=== PATIENT | female | born 1960 | race Two or more races ===

== ENCOUNTER 2023-08-05 16:33 | Emergency (ER) | payer MEDICAID, OTHER ==
[~2023-08-05] VITALS: Ht 172.7 cm; Wt 84.5 kg
[2023-08-05 18:18] LABS: Basophils # (auto) 0 10 ^3/uL (0-0.2); Basophils % (auto) 0.9 % (0.0-2.0); Eosinophils # (auto) 0.1 10 ^3/uL (0-0.8); Eosinophils % (auto) 2.4 % (0.0-7.0); Hematocrit 41.5 % (36.0-46.0); Hemoglobin 13.8 g/dL (12.2-16.2); Lymphocytes # (auto) 2.1 10 ^3/uL (0.4-5.4); Lymphocytes % (auto) 38.1 % (10.0-50.0); Mean Corpuscular Hemoglobin 30.7 pg (28.0-32.0); Mean Corpuscular Hgb Conc. 33.3 g/dL (32.0-36.0); Mean Corpuscular Volume 92.4 fL (80.0-100.0); Monocytes # (auto) 0.3 10 ^3/uL (0-1.3); Neutrophils # (auto) 2.9 10 ^3/uL (1.6-8.6); Neutrophils % (auto) 52.6 % (37.0-80.0); Nucleated Red Blood Cells % 0.1 %; Red Blood Cells 4.49 10^6/uL (4.0-5.20); Red Cell Distribution Width 13.1 % (11.8-14.3); White Blood Cell 5.5 10^3/uL (4.4-10.8)
[2023-08-05 18:36] LABS: Alanine Aminotransferase 30 U/L (7-40); Albumin 4.3 g/dL (3.2-4.8); Alkaline Phosphatase 45 U/L (46-116); Anion Gap 7 (5-15); Aspartate Aminotransferase 32 U/L (13-40); BUN/Creatinine Ratio 13.3 (10.0-20.0); Bilirubin, Total 0.4 mg/dL (0.2-1.0); Blood Urea Nitrogen 14 mg/dL (9-23); Calcium 9.4 mg/dL (8.7-10.4); Carbon Dioxide 27 mmol/L (20-30); Chloride 107 mmol/L (98-107); Glucose 129 mg/dL (74-106); Potassium 4.2 mmol/L (3.5-5.1); Sodium 141 mmol/L (136-145); Total Protein 6.5 g/dL (5.7-8.2)
[2023-08-05 23:09] VITALS: BP 142/66; TEMP 98.5
[2023-08-05 23:11] VITALS: PULSE 92; RESP 18; O2SAT 97
== END 2023-08-05 23:38 | disposition short-term general hospital (02) ==
LOC: ER 16:33
DX: R90.0 Intracranial space-occupying lesion found on diagnostic imaging of central nervous system (principal); R42 Dizziness and giddiness; R20.0 Anesthesia of skin
CPT/HCPCS: 36415; 70450; 80053; 84484; 85025; 93005

== ENCOUNTER 2024-09-12 11:41 | Emergency (ER) | payer MEDICAID ==
[~2024-09-12] VITALS: Ht 170.2 cm; Wt 82.0 kg
[2024-09-12 12:23] LABS: Basophils # (auto) 0 10 ^3/uL (0-0.2); Basophils % (auto) 0.7 % (0.0-2.0); Eosinophils # (auto) 0.2 10 ^3/uL (0-0.8); Eosinophils % (auto) 3.1 % (0.0-7.0); Hematocrit 46.3 % (36.0-46.0); Hemoglobin 15.7 g/dL (12.2-16.2); Lymphocytes # (auto) 2.7 10 ^3/uL (0.4-5.4); Lymphocytes % (auto) 49.5 % (10.0-50.0); Mean Corpuscular Hemoglobin 31.8 pg (28.0-32.0); Mean Corpuscular Volume 93.6 fL (80.0-100.0); Monocytes # (auto) 0.4 10 ^3/uL (0-1.3); Neutrophils # (auto) 2.2 10 ^3/uL (1.6-8.6); Neutrophils % (auto) 38.7 % (37.0-80.0); Nucleated Red Blood Cells % 0.1 %; Platelet Count (auto) 200 10^3/uL (140-450); Red Blood Cells 4.94 10^6/uL (4.0-5.20); Red Cell Distribution Width 12.5 % (11.8-14.3); White Blood Cell 5.6 10^3/uL (4.4-10.8)
--- NOTE | 2024-09-12 12:27 | ED.PDOC ---
HPI (NEURO) HPI Comments 64y F who presents to the ED for chief complaint of L sided weakness. Pt states she has been having L sided facial weakness radiating down L arm with associated facial numbness since 1900 last night PM. Pt states she also felt lightheaded since and states she has also been having diarrhea. Pt in the, ED, is alert and oriented x4 and able to answer all questions and no noted changes in vision, gait or speech are noted. Pt does state history of CVA. Pt otherwise denies any other symptoms at this time. Chief Complaint: Left Sided Weakness Time Seen by MD: 12:24 Primary Care Provider: LYNDA Alcocer Notes: Medications, Allergies Information Source: Patient Mode of Arrival: Ambulatory Brought in by: self Severity: Moderate Dizziness/Weakness Severity: Does not affect activitie Headache Severity: None Timing: Hours Duration: Since onset Prehospital treatment: None Weakness Location: (L) Sided Numbness Location: (L) Sided Onset: At rest Circumstances: Spontaneous Symptoms: Weakness History of: CVA, Hypertension Modifying factors: Nothing Associated Signs and Symptoms: Weakness Past Medical History PAST MEDICAL HISTORY: Cancer (melanoma), DM, HTN Surgical History: Denies all surgeries BPO SPECIALIST History: No Pertinent BPO SPECIALIST History Family History Family History: Reviewed,noncontributory to illness, No family hx of Cancer, No family hx of DM, No family hx of Heart jesus, No family hx of HTN, No family hx ofKidney jesus, No family hx of Liver jesus, No family hx of Lung jesus, No family hx of Stroke Social History Smoker: Non-Smoker Alcohol: Denies ETOH Use Drugs: Denies Drug Use Lives In: Home Constitutional: reports: malaise, weakness; denies: chills, diaphoresis, fatigue, fever, others EENTM: denies: blurred vision, double vision, ear bleeding, ear discharge, ear drainage, ear pain, ear ringing, eye pain, eye redness, hearing loss, mouth pain, mouth swelling, nasal discharge, nose bleeding, nose congestion, nose pain, photophobia, tearing, throat pain, throat swelling, voice changes, others Respiratory: denies: cough, hemoptysis, orthopnea, SOB at rest, shortness of breath, SOB with excertion, stridor, wheezing, others 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: denies: chest pain, dizzy spells, diaphoresis, Dyspnea on exertion, edema, irregular heart beat, left arm pain, lightheadedness, palpitations, PND, syncope, others Gastrointestinal: denies: abdomen distended, abdominal pain, blood streaked bowels, constipated, diarrhea, dysphagia, difficulty swallowing, hematemesis, melena, nausea, poor appetite, poor fluid intake, rectal bleeding, rectal pain, vomiting, others Genitourinary: denies: abnormal vagina bleeding, burning, dyspareunia, dysuria, flank pain, frequency, hematuria, incontinence, pain, , vagina discharge, urgency, others Neurological: reports: left sided numbness, left sided weakness; denies: dizziness, fainting, headache, numbness, paresthesia, pre-existing deficit, right sided numbness, right sided weakness, seizure, speech problems, tingling, tremors, weakness, others Musculoskeletal: denies: back pain, gout, joint pain, joint swelling, muscle pain, muscle stiffness, neck pain, others Integumetry: denies: bruises, change in color, change in hair/nails, dryness, laceration, lesions, lumps, rash, wounds, others Allergic/Immunocompromised: denies: Difficulty Healing, Frequent Infections, Hives, Itching, others Hematologic/Lymphatic: denies: anemia, blood clots, easy bleeding, easy bruising, swollen glands, others Endocrine: denies: excessive hunger, excessive sweating, excessive thirst, excessive urination, flushing, intolerance to cold, intolerance to heat, unexplained weight gain, unexplained weight loss, others Psychiatric: denies: anxiety, bipolar disorder, depression, hopeless, panic disorder, schizophrenia, sleepless, suicidal, others All Other Systems: Reviewed and Negative Physical Exam General Appearance: No Apparent Distress HEENT: Normal ENT Inspection, Pharynx Normal, TMs Normal Neck: Full Range of Motion, Non-Tender, Normal, Normal Inspection Respiratory: Chest Non-Tender, Lungs Clear, No Accessory Muscle Use, No Respiratory Distress, Normal Breath Sounds 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: No Edema, No JVD, No Murmur, No Gallop, Normal Peripheral Pulses, Regular Rate/Rhythm Breast Exam: Deferred Gastrointestinal: No Organomegaly, Non Tender, No Pulsatile Mass, Normal Bowel Sounds, Soft Genitalia: Deferred Pelvic: Deferred Rectal: Deferred Extremities: No calf tenderness, Normal capillary refill, Normal inspection, Normal range of motion, Non-tender, No pedal edema Musculoskeletal : Apperance: Normal Neurologic: Alert, enterprise account executive II-XII nml as Tested, No Motor Deficits, Normal Affect, Normal Mood, No Sensory Deficits Cerebellar Function: Normal Reflexes: Normal Skin: Dry, Normal Color, Warm Lymphatic: No Adenopathy EKG EKG : Pulse Rate (adult): 66 Steele: RAD Cardiac Rhythm: NSR Block: None Hypertrophy: None ST: Normal Was a procedure done? Was a procedure done?: No Differential Diagnosis (SZ) General Weakness: Anemia, Dehydration, Electrolyte imbalance, Encephalopathy, Hypoglycemia, Hypotension, TIA, Vertigo: central Headache: Migraine, Post-Traumatic, Sinusitis X-Ray, Labs, Meds, VS Vital Signs Date Time Temp Pulse Resp B/P (MAP) Pulse Ox O2 Delivery O2 Flow Rate FiO2 09/12/24 12:27 66 09/12/24 11:50 97.9 74 18 105/68 (80) 99 09/12/24 11:48 66 Lab Test 09/12/24 12:04 09/12/24 11:55 Range/Units White Blood Count 5.6 4.4-10.8 10^3/uL Red Blood Count 4.94 4.0-5.20 10^6/uL Hemoglobin 15.7 12.2-16.2 g/dL Hematocrit 46.3 H 36.0-46.0 % Mean Corpuscular Volume 93.6 80.0-100.0 fL Mean Corpuscular Hemoglobin 31.8 28.0-32.0 pg Mean Corpuscular Hemoglobin Concent 34.0 32.0-36.0 g/dL Red Cell Distribution Width 12.5 11.8-14.3 % Platelet Count 200 140-450 10^3/uL Mean Platelet Volume 7.9 6.9-10.8 fL Neutrophils (%) (Auto) 38.7 37.0-80.0 % Lymphocytes (%) (Auto) 49.5 10.0-50.0 % Monocytes (%) (Auto) 8.0 0.0-12.0 % Eosinophils (%) (Auto) 3.1 0.0-7.0 % Basophils (%) (Auto) 0.7 0.0-2.0 % Neutrophils # (Auto) 2.2 1.6-8.6 10 ^3/uL Lymphocytes # (Auto) 2.7 0.4-5.4 10 ^3/uL Monocytes # (Auto) 0.4 0-1.3 10 ^3/uL Eosinophils # (Auto) 0.2 0-0.8 10 ^3/uL Basophils # (Auto) 0 0-0.2 10 ^3/uL Nucleated Red Blood Cells 0.1 % Sodium Level 140 136-145 mmol/L Potassium Level 4.7 3.5-5.1 mmol/L Chloride Level 106 98-107 mmol/L Carbon Dioxide Level 26 20-31 mmol/L Anion Gap 8 5-15 Blood Urea Nitrogen 13 9-23 mg/dL Creatinine 1.04 H 0.550-1.02 mg/dL Glomerular Filtration Rate Calc 60 >90 mL/min BUN/Creatinine Ratio 12.5 10.0-20.0 Serum Glucose 107 H 74-106 mg/dL Calcium Level 10.1 8.7-10.4 mg/dL POC Glucose 110 H 70-106 mg/dl EXAM: CT HEAD WITHOUT CONTRAST IMPRESSION: Mild chronic ischemic changes without evidence of acute intracranial process. The patient's CBC and chemistry panel are within normal limits The patient will be discharged The patient will follow up with the primary care doctor The patient will return to the emergency department's condition worsens. Images Reviewed?: Images reviewed and evaluated by me Time of 1ST Reevaluation: 13:00 Reevaluation 1ST: Unchanged Time of 2ND Reevaluation: 14:50 Reevaluation 2ND: Improved Patient Education/Counseling: Diagnosis, Treatment, Prognosis, Need For Follow Up Family Education/Counseling: No Family Present Additional Information - I reviewed the following notes from patient's past medical encounters: - The following tests were ordered, and results were reviewed by me: (Labs, X- Ray, EKG): cbc, ua, bmp, ekg x 1 , ct head without contrast - Additional information was gathered from interviewing the following independent Historian: (Family, Other Providers, EMT): none - I reviewed and agreed with the following test results read by other provider: (X-ray, CT, US): radiologist - I discussed treatments and results with medical personnel and: (consultants, family): none Departure 1 Departure Time of Disposition: 14:50 Impression: Primary Impression: Left facial numbness Disposition: 01 HOME / SELF CARE / HOMELESS Condition: Fair Discharged With: Self Critical Care Note Critical Care Time?: No Stability Stability form required: No Heart Score Heart Score: Heart Score Response (Comments) Value History N/A 0 EKG N/A 0 Age N/A 0 Risk Factors N/A 0 Troponin N/A 0 Total 0 I personally scribed for DANIELLE RUFFIN MD ([email or web address]) on 09/12/24 at 12:27. Electronically submitted by Tomy Kline ([email or web address]). I personally scribed for DANIELLE RUFFIN MD ([email or web address]) on 09/12/24 at 12:45. Electronically submitted by Tomy Kline ([email or web address]). DANIELLE RUFFIN MD Sep 12, 2024 12:27
--- NOTE | 2024-09-12 12:35 | DVH ---
EXAM: CT HEAD WITHOUT CONTRAST HISTORY: left sided facial numbness COMPARISON: CT HEAD WITHOUT CONTRAST on DOS: 08/05/23 TECHNIQUE: Noncontrast axial CT images of the head were performed. Sagittal and coronal reformatted images were obtained. This CT exam was performed using 1 or more of the following dose reduction techniques: Au tomated exposure control, adjustment of the mA and/or kv according to patient size, or the use of ite rative reconstruction techniques. Radiation Dose : Head: CT Dose: CTDI volume is 57.45 mGy. Dose-length product is 1017.19 mGy*cm FINDINGS: No intracranial hemorrhage, mass, midline shift, hydrocephalus, or evidence of acute large vessel inf arct. There is mild decreased attenuation in the periventricular white matter. There is a prominent p erivascular space along the caudal margin of the left basal ganglia, stable. There is a tiny cavum se ptum pellucidum. The partially-visualized paranasal sinuses are clear. There is a right nasal piercin g. The bilateral mastoid air cells and middle ear spaces are clear. No cranial fracture or scalp red ma. IMPRESSION: Mild chronic ischemic changes without evidence of acute intracranial process.
[2024-09-12 12:45] LABS: Chloride 106 mmol/L (98-107); Potassium 4.7 mmol/L (3.5-5.1); Sodium 140 mmol/L (136-145)
[2024-09-12 12:46] LABS: Anion Gap 8 (5-15); Carbon Dioxide 26 mmol/L (20-31)
[2024-09-12 12:47] LABS: Calcium 10.1 mg/dL (8.7-10.4)
[2024-09-12 12:52] LABS: BUN/Creatinine Ratio 12.5 (10.0-20.0); Blood Urea Nitrogen 13 mg/dL (9-23)
[2024-09-12 13:03] LABS: Glucose 107 mg/dL (74-106)
--- NOTE | 2024-09-12 14:44 | ECG ---
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
[2024-09-12 15:57] VITALS: BP 110/60; PULSE 98; RESP 15; TEMP 98; O2SAT 99
== END 2024-09-12 15:59 | disposition home or self-care (01) ==
LOC: ER 11:41
DX: R20.0 Anesthesia of skin (principal); R42 Dizziness and giddiness; E11.9 Type 2 diabetes mellitus without complications; I10 Essential (primary) hypertension; Z85.820 Personal history of malignant melanoma of skin; Z86.73 Personal history of transient ischemic attack (TIA), and cerebral infarction without residual deficits
CPT/HCPCS: 36415; 70450; 80048; 82962; 85025; 93005

== ENCOUNTER 2025-04-07 07:20 | Inpatient (IN) | payer MEDICAID ==
[~2025-04-07] VITALS: Ht 167.6 cm; Wt 87.5 kg
--- NOTE | 2025-04-07 07:39 | ECG ---
[facility] Test Date: 2025-04-07 Test Time: 07:34:08 Pat Name: GRACIELA ANDERSON Department: ED Room: [address] [place] [address] Gender: F Gauge Maker: MARY JANE : 1960 Requested By: DEVAN LEMON Order Number: [id number] Reading MD: aRh Casarez Measurements Intervals [place] Rate: 56 P: 51 [place]: 174 QRS: 57 QRSD: 73 T: 54 QT: 467 QTc: 451 Interpretive Statements Sinus rhythm Probable left atrial enlargement Anteroseptal infarct, age indeterminate Electronically Signed On 04-07-2025 16:45:45 PDT by Rah Casarez Please click the below link to view image of tracing.
--- NOTE | 2025-04-07 07:56 | ED.PDOC ---
GI ASSESSMENT HPI Comments 64 y.o female with PMHx of HLD, HTN, GA, and CVA, presents to the ED for a chief complaint of generalized abdominal pain associated with nausea and vomiting that has been ongoing for the past month but worsened last night. Patient describes pain as sharp, constant and has no alleviating factors. Patient mentions being on GLP-1 injections for weight loss but last injection was 2-3 months ago. She denies any diarrhea, fever, chills, dysuria, bloody stool. Chief Complaint: Abdominal Pain Time Seen by MD: 07:40 Primary Care Provider: LYNDA Reviewed Notes: Nurses Notes, Medications, Allergies Allergies: Coded Allergies: NO KNOWN ALLERGIES (Unverified , 08/05/23) Information Source: Patient Mode of Arrival: Ambulatory Timing: Months (1) Duration: Since onset Vomitus: None Stool: Normal Severity: Moderate Recent: None Recent Hx of: None Pain Location: Diffuse Modifying Factors: Nothing Associated sign and symptoms: Nausea, Abdominal Pain Past Medical History PAST MEDICAL HISTORY: Cancer, CVA, DM, HTN, GA Surgical History: Denies all surgeries MODEL SET ARTIST History: No Pertinent MODEL SET ARTIST History Family History Family History: Reviewed,noncontributory to illness, No family hx of Cancer, No family hx of DM, No family hx of Heart jesus, No family hx of HTN, No family hx ofKidney jesus, No family hx of Liver jesus, No family hx of Lung jesus, No family hx of Stroke Social History Smoker: Non-Smoker Alcohol: Denies ETOH Use Drugs: Denies Drug Use Lives In: Home Constitutional: denies: chills, diaphoresis, fatigue, fever, malaise, sweats, weakness, others EENTM: denies: blurred vision, double vision, ear bleeding, ear discharge, ear drainage, ear pain, ear ringing, eye pain, eye redness, hearing loss, mouth pain, mouth swelling, nasal discharge, nose bleeding, nose congestion, nose pain, photophobia, tearing, throat pain, throat swelling, voice changes, others Respiratory: denies: cough, hemoptysis, orthopnea, SOB at rest, shortness of breath, SOB with excertion, stridor, wheezing, others 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: denies: chest pain, dizzy spells, diaphoresis, Dyspnea on exertion, edema, irregular heart beat, left arm pain, lightheadedness, palpitations, PND, syncope, others Gastrointestinal: reports: abdominal pain, nausea; denies: abdomen distended, blood streaked bowels, constipated, diarrhea, dysphagia, difficulty swallowing, hematemesis, melena, poor appetite, poor fluid intake, rectal bleeding, rectal pain, vomiting, others Genitourinary: denies: abnormal vagina bleeding, burning, dyspareunia, dysuria, flank pain, frequency, hematuria, incontinence, pain, , vagina discharge, urgency, others Neurological: denies: dizziness, fainting, headache, left sided numbness, left sided weakness, numbness, paresthesia, pre-existing deficit, right sided numbness, right sided weakness, seizure, speech problems, tingling, tremors, weakness, others Musculoskeletal: denies: back pain, gout, joint pain, joint swelling, muscle pain, muscle stiffness, neck pain, others Integumetry: denies: bruises, change in color, change in hair/nails, dryness, laceration, lesions, lumps, rash, wounds, others Allergic/Immunocompromised: denies: Difficulty Healing, Frequent Infections, Hives, Itching, others Hematologic/Lymphatic: denies: anemia, blood clots, easy bleeding, easy bruising, swollen glands, others Endocrine: denies: excessive hunger, excessive sweating, excessive thirst, excessive urination, flushing, intolerance to cold, intolerance to heat, unexplained weight gain, unexplained weight loss, others Psychiatric: denies: anxiety, bipolar disorder, depression, hopeless, panic disorder, schizophrenia, sleepless, suicidal, others All Other Systems: Reviewed and Negative Physical Exam General Appearance: Moderate Distress HEENT: Normal ENT Inspection, Pharynx Normal, TMs Normal Neck: Full Range of Motion, Non-Tender, Normal, Normal Inspection Respiratory: Chest Non-Tender, Lungs Clear, No Accessory Muscle Use, No Respiratory Distress, Normal Breath Sounds 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: No Edema, No JVD, No Murmur, No Gallop, Normal Peripheral Pulses, Regular Rate/Rhythm Breast Exam: Deferred Gastrointestinal: No Organomegaly, Non Tender, No Pulsatile Mass, Normal Bowel Sounds, Soft Genitalia: Deferred Pelvic: Deferred Rectal: Deferred Extremities: No calf tenderness, Normal capillary refill, Normal inspection, Normal range of motion, Non-tender, No pedal edema Musculoskeletal : Apperance: Normal Neurologic: Alert, conductor/brakeman II-XII nml as Tested, No Motor Deficits, Normal Affect, Normal Mood, No Sensory Deficits Cerebellar Function: Normal Reflexes: Normal Skin: Dry, Normal Color, Warm Peripheral Pulses: 3+ Radial (R), 3+ Radial (L) Lymphatic: No Adenopathy Was a procedure done? Was a procedure done?: No GI differential Dx Differential Diagnosis: Constipation, Diverticular disease, Esophagitis, Gastr itis/PUD, Gastroenteritis, Inflammatory BD, Viral X-Ray, Labs, Meds, VS Vital Signs Date Time Temp Pulse Resp B/P (MAP) Pulse Ox O2 Delivery O2 Flow Rate FiO2 04/07/25 09:19 84 16 98 Room Air* 0 21 04/07/25 07:34 56 04/07/25 07:23 98.3 60 18 113/82 98 98.3 Lab Test 04/07/25 08:03 Range/Units White Blood Count 3.5 L 4.4-10.8 10^3/uL Red Blood Count 4.65 4.0-5.20 10^6/uL Hemoglobin 14.9 12.2-16.2 g/dL Hematocrit 43.7 36.0-46.0 % Mean Corpuscular Volume 94.1 80.0-100.0 fL Mean Corpuscular Hemoglobin 32.1 H 28.0-32.0 pg Mean Corpuscular Hemoglobin Concent 34.1 32.0-36.0 g/dL Red Cell Distribution Width 13.5 11.8-14.3 % Platelet Count 202 140-450 10^3/uL Mean Platelet Volume 8.0 6.9-10.8 fL Neutrophils (%) (Auto) 37.7 37.0-80.0 % Lymphocytes (%) (Auto) 49.1 10.0-50.0 % Monocytes (%) (Auto) 8.3 0.0-12.0 % Eosinophils (%) (Auto) 3.7 0.0-7.0 % Basophils (%) (Auto) 1.2 0.0-2.0 % Neutrophils # (Auto) 1.3 L 1.6-8.6 10 ^3/uL Lymphocytes # (Auto) 1.7 0.4-5.4 10 ^3/uL Monocytes # (Auto) 0.3 0-1.3 10 ^3/uL Eosinophils # (Auto) 0.1 0-0.8 10 ^3/uL Basophils # (Auto) 0 0-0.2 10 ^3/uL Nucleated Red Blood Cells 0.2 % Sodium Level 141 136-145 mmol/L Potassium Level 4.2 3.5-5.1 mmol/L Chloride Level 105 98-107 mmol/L Carbon Dioxide Level 26 20-31 mmol/L Anion Gap 10 5-15 Blood Urea Nitrogen 20 9-23 mg/dL Creatinine 1.11 H 0.550-1.02 mg/dL Glomerular Filtration Rate Calc 56 >90 mL/min BUN/Creatinine Ratio 18.0 10.0-20.0 Serum Glucose 93 74-106 mg/dL Calcium Level 9.5 8.7-10.4 mg/dL Lipase 56 H 12-53 U/L Current Medications Medications (Trade) Dose Ordered Sig/Amelia Route Start Time Stop Time Status Last Admin Acetaminophen/ Hydrocodone Bitart ([place] 10/325MG Tab) 1 tab ONCE ONCE PO 04/07/25 08:00 04/07/25 08:01 DC 04/07/25 09:19 Patient alert. Complaining of nausea abdominal discomfort. Abdomen is soft nontender Vitals stable. Answering questions. No sign of distress. EKG reviewed does not show any acute process. She was using diet control pills. Explained to the patient. Continue monitoring Time of 1ST Reevaluation: 08:30 Reevaluation 1ST: Unchanged Patient Education/Counseling: Diagnosis, Treatment, Prognosis Family Education/Counseling: No Family Present SEPSIS Sepsis Screen Date sepsis recognized/suspect: Apr 07, 2025 Time Sepsis recognized/suspect: 724 Recent Procedure: No On Antibiotic Therapy: No Respiratory Rate >20: No Heart Rate >90: No Temp<36 C (96.8 F) or >38.3 C: No SBP <90 or MAP <65 mmHG: No New Acute Mental Status Change: No Is the patient on CPAP, BIPAP,: No Physician Orders Urinalysis (04/07/25 07:53) Vital Signs Date Time Temp Pulse Resp B/P (MAP) Pulse Ox O2 Delivery O2 Flow Rate FiO2 04/07/25 09:19 84 16 98 Room Air* 0 21 04/07/25 07:34 56 04/07/25 07:23 98.3 60 18 113/82 98 98.3 Laboratory Tests Test 04/07/25 08:03 White Blood Count 3.5 10^3/uL (4.4-10.8) L Medications Medications Dose Ordered Sig/Amelia Route Start Time Stop Time Status Last Admin Dose Admin Acetaminophen/ Hydrocodone Bitart 1 tab ONCE ONCE PO 04/07/25 08:00 04/07/25 08:01 DC 04/07/25 09:19 Departure 1 Departure Time of Disposition: 08:04 Impression: Primary Impression: Gastroenteritis Additional Impression: Acute pancreatitis Qualified Codes: K85.90 - Acute pancreatitis without necrosis or infection, unspecified Disposition: 09 ADMITTED INPATIENT Admit to: Med Surg Condition: Guarded Critical Care Note Critical Care Time?: No Stability Stability form required: No I personally scribed for DEVAN LEMON MD ([email or web address]) on 04/07/25 at 07:56. Electronically submitted by Jory Montiel ([facility]). DEVAN LEMON MD Apr 07, 2025 07:56
[2025-04-07 08:49] LABS: Hematocrit 43.7 % (36.0-46.0); Hemoglobin 14.9 g/dL (12.2-16.2); Mean Corpuscular Hemoglobin 32.1 pg (28.0-32.0); Mean Corpuscular Volume 94.1 fL (80.0-100.0); Nucleated Red Blood Cells % 0.2 %
[2025-04-07 09:12] LABS: Chloride 105 mmol/L (98-107); Potassium 4.2 mmol/L (3.5-5.1); Sodium 141 mmol/L (136-145)
[2025-04-07 09:13] LABS: Anion Gap 10 (5-15); Calcium 9.5 mg/dL (8.7-10.4); Carbon Dioxide 26 mmol/L (20-31)
[2025-04-07 09:18] LABS: BUN/Creatinine Ratio 18.0 (10.0-20.0); Blood Urea Nitrogen 20 mg/dL (9-23); Glucose 93 mg/dL (74-106)
[2025-04-07 09:19] VITALS: PULSE 84; RESP 16; O2SAT 98
[2025-04-07] MEDS: HYDROcodone-ACET 10/325MG TAB PO ONE (09:19)
[2025-04-07 09:27] LABS: Lipase 56 U/L (12-53)
--- NOTE | 2025-04-07 10:23 | DVHHP2 ---
History of Present Illness Reason for Visit: Abdominal pain History of Present Illness Ashley Calixto is a 64-year-old female with past medical history of melanoma cancer status post radiation, CVA, diabetes, hypertension, [place], and cholecystectomy who presents to the ED with abdominal pain for 1 month with nausea and vomiting. Patient reports the pain 9/10 cramping and constant. She states there are no triggering or alleviating factors. Patient reports that she tried to get appointment with her primary but does not have one out until May of this year. Patient also reports that she is compliant with her medications. Patient denies any recent trauma or injury, recent sick contacts, recent travels, recent ingestion of spoiled food, chest pain, shortness of breath, fever, chills, lightheadedness, weakness, dizziness, diarrhea, or urinary symptoms. 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: CVA Endocrine: Diabetes Past Medical History Melanoma cancer status post radiation Past Surgical History: Cholecystectomy Family History: Other (Dad from an [place] and mom has Alzheimer's.) Smoke: No ALCOHOL: occassional Drugs: None Lives: with Family Domestic Violence: Neg Review of Systems Gastrointestinal: Nausea, Vomiting, Abdominal Pain Allergies: Coded Allergies: NO KNOWN ALLERGIES (Unverified , 08/05/23) Exam Vital Signs Vital Signs Date Time Temp Pulse Resp B/P (MAP) Pulse Ox O2 Delivery O2 Flow Rate FiO2 04/07/25 10:06 97.6 49 16 116/77 (90) 100 97.6 04/07/25 09:19 Room Air* 0 21 General Appearance: Alert, Oriented X3, Cooperative, No acute distress HEENT: Atraumatic, PERRLA, EOMI, Mucous membr. moist/pink Respiratory: Normal air movement 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: Normal S1, Normal S2 Abdominal: Normal bowel sounds, Soft Extremities: No clubbing, No cyanosis, No edema, Normal pulses Skin: No significant lesion Neuro: Normal gait, Normal speech, Strength at 5/5 X4 ext, Normal tone, Sensation intact Psych/Mental Status: Mental status NL, Mood NL Labs/Xrays Labs Test 04/07/25 08:03 Range/Units White Blood Count 3.5 L 4.4-10.8 10^3/uL Red Blood Count 4.65 4.0-5.20 10^6/uL Hemoglobin 14.9 12.2-16.2 g/dL Hematocrit 43.7 36.0-46.0 % Mean Corpuscular Volume 94.1 80.0-100.0 fL Mean Corpuscular Hemoglobin 32.1 H 28.0-32.0 pg Mean Corpuscular Hemoglobin Concent 34.1 32.0-36.0 g/dL Red Cell Distribution Width 13.5 11.8-14.3 % Platelet Count 202 140-450 10^3/uL Mean Platelet Volume 8.0 6.9-10.8 fL Neutrophils (%) (Auto) 37.7 37.0-80.0 % Lymphocytes (%) (Auto) 49.1 10.0-50.0 % Monocytes (%) (Auto) 8.3 0.0-12.0 % Eosinophils (%) (Auto) 3.7 0.0-7.0 % Basophils (%) (Auto) 1.2 0.0-2.0 % Neutrophils # (Auto) 1.3 L 1.6-8.6 10 ^3/uL Lymphocytes # (Auto) 1.7 0.4-5.4 10 ^3/uL Monocytes # (Auto) 0.3 0-1.3 10 ^3/uL Eosinophils # (Auto) 0.1 0-0.8 10 ^3/uL Basophils # (Auto) 0 0-0.2 10 ^3/uL Nucleated Red Blood Cells 0.2 % Sodium Level 141 136-145 mmol/L Potassium Level 4.2 3.5-5.1 mmol/L Chloride Level 105 98-107 mmol/L Carbon Dioxide Level 26 20-31 mmol/L Anion Gap 10 5-15 Blood Urea Nitrogen 20 9-23 mg/dL Creatinine 1.11 H 0.550-1.02 mg/dL Glomerular Filtration Rate Calc 56 >90 mL/min BUN/Creatinine Ratio 18.0 10.0-20.0 Serum Glucose 93 74-106 mg/dL Calcium Level 9.5 8.7-10.4 mg/dL Lipase 56 H 12-53 U/L Exam: CT CT AB PEL WO CON-NO ORAL OR IV History: ABD PAIN Comparison Study: None Technique: Multidetector spiral CT of the chest, abdomen and pelvis was performed from lower neck to pubic symphysis Axial, coronal and sagittal multiplanar reformats were performed by the technologist on a separate workstation. Radiation Dose : 1. Chest/Abdomen/Pelvis: CTDIvol 9 mGy, DLP 421 mGy*cm. Findings: Lower neck: Normal thyroid. Lungs: No focal consolidation, pleural effusion or pneumothorax. Heart/Vascular Structures: Normal heart size. No pericardial effusion. Lymph Nodes: No adenopathy Pleura: No pleural effusion or significant pneumothorax. Liver: The liver is normal in size. No focal lesions. Normal hepatic vascular enhancement. Gallbladder and Biliary Tree: Cholecystectomy. Spleen: Unremarkable Pancreas: The pancreas is normal in appearance without focal lesions or abnormal enhancement. Adrenal Glands: Unremarkable Kidneys: Kidneys demonstrate normal symmetric enhancement without focal lesions, calculi or hydronephrosis. Bladder: Unremarkable Bowel: The stomach is grossly normal in appearance. Small bowel and colon are normal in caliber and distribution. Normal appendix. Moderate sigmoid diverticulosis without diverticulitis. No bowel obstruction. Ascites: Absent Lymphadenopathy: No mesenteric, retroperitoneal or periportal lymphadenopathy. Abdominal Wall and Mesentery: Unremarkable. Vasculature: The visualized abdominal aorta is normal in size and caliber. Abdominal and pelvic vessels demonstrate normal enhancement. Pelvic Organs: Unremarkable Musculoskeletal: Moderate spondylosis of the L4-5 level. IMPRESSION: 1. Moderate sigmoid diverticulosis Normal appendix SEPSIS Sepsis Screen Date sepsis recognized/suspect: Apr 07, 2025 Time Sepsis recognized/suspect: 724 Recent Procedure: No On Antibiotic Therapy: No Respiratory Rate >20: No Heart Rate >90: No Temp<36 C (96.8 F) or >38.3 C: No SBP <90 or MAP <65 mmHG: No New Acute Mental Status Change: No Is the patient on CPAP, BIPAP,: No Physician Orders Urinalysis (04/07/25 07:53) Sodium Chloride 0.9% (04/07/25 10:15) Ct Ab Pel Wo Con-No Oral Or Iv (04/07/25 10:22) Drug Screen (04/07/25 10:22) Vital Signs Date Time Temp Pulse Resp B/P (MAP) Pulse Ox O2 Delivery O2 Flow Rate FiO2 04/07/25 10:06 97.6 49 16 116/77 (90) 100 97.6 04/07/25 09:19 84 16 98 Room Air* 0 21 04/07/25 07:34 56 04/07/25 07:23 98.3 60 18 113/82 98 98.3 Laboratory Tests Test 04/07/25 08:03 White Blood Count 3.5 10^3/uL (4.4-10.8) L Medications Medications Dose Ordered Sig/Amelia Route Start Time Stop Time Status Last Admin Dose Admin Acetaminophen/ Hydrocodone Bitart 1 tab ONCE ONCE PO 04/07/25 08:00 04/07/25 08:01 DC 04/07/25 09:19 1 TAB Assessment/Plan Assessment/Plan Assessment Intractable abdominal pain likely due to biliary colic Moderate sigmoid diverticulosis SANDIP likely due to ATN Alcohol use Hyperlipasemia History of melanoma cancer status post radiation History of CVA History of diabetes History of hypertension History of [place] History of cholecystectomy Plan Admit to med surge NS 1 L given in ED Antiemetics Pain management Lipase noted Hemoglobin A1c ISS and Accu-Cheks CT abdomen and pelvis UA EKG UDS Diet DVT prophylaxis-SCDs PUD prophylaxis-PPIs Discussed plan of care with patient and nurse Counseled patient on cessation of alcohol use [id number] Preventive counseling healthy eating habits, physical activity, and regular checkups RN to recon Home meds Plan discussed with: Patient My Orders Orders - AARTI LUCIA Procedure Category Date Status Time Ct Ab Pel Wo Con-No CT 04/07/25 Verified Oral Or Iv 10:22 Drug Screen LAB 04/07/25 Verified 10:22 Date of Service: Apr 07, 2025 Billing Provider: AARTI LUCIA Common Visit Codes: [id number] INP/OBS CARE (HIGH) Secondary Visit Codes: [id number] COUNSELING IND AARTI LUCIA Apr 07, 2025 10:23
[2025-04-07] MEDS: SODIUM CHLORIDE 0.9% 1,000 ML IV ONE (10:52)
--- NOTE | 2025-04-07 11:02 | DVH ---
Exam: CT CT AB PEL WO CON-NO ORAL OR IV History: ABD PAIN Comparison Study: None Technique: Multidetector spiral CT of the chest, abdomen and pelvis was performed from lower neck to pubic symphysis Axial, coronal and sagittal multiplanar reformats were performed by the technologist on a separate workstation. Radiation Dose : 1. Chest/Abdomen/Pelvis: CTDIvol 9 mGy, DLP 421 mGy*cm. Findings: Lower neck: Normal thyroid. Lungs: No focal consolidation, pleural effusion or pneumothorax. Heart/Vascular Structures: Normal heart size. No pericardial effusion. Lymph Nodes: No adenopathy Pleura: No pleural effusion or significant pneumothorax. Liver: The liver is normal in size. No focal lesions. Normal hepatic vascular enhancement. Gallbladder and Biliary Tree: Cholecystectomy. Spleen: Unremarkable Pancreas: The pancreas is normal in appearance without focal lesions or abnormal enhancement. Adrenal Glands: Unremarkable Kidneys: Kidneys demonstrate normal symmetric enhancement without focal lesions, calculi or hydroneph rosis. Bladder: Unremarkable Bowel: The stomach is grossly normal in appearance. Small bowel and colon are normal in caliber and d istribution. Normal appendix. Moderate sigmoid diverticulosis without diverticulitis. No bowel obst ruction. Ascites: Absent Lymphadenopathy: No mesenteric, retroperitoneal or periportal lymphadenopathy. Abdominal Wall and Mesentery: Unremarkable. Vasculature: The visualized abdominal aorta is normal in size and caliber. Abdominal and pelvic vess els demonstrate normal enhancement. Pelvic Organs: Unremarkable Musculoskeletal: Moderate spondylosis of the L4-5 level. IMPRESSION: 1. Moderate sigmoid diverticulosis Normal appendix
[2025-04-07] MEDS ORDERED: DEXTROSE (50%) 50ML SYRG IV PRN (11:15)
[2025-04-07] MEDS ORDERED: ONDANSETRON HCL 4 MG/2 ML VIAL IV PRN (11:15)
[2025-04-07] MEDS ORDERED: MORPHINE SULFATE INJ 2 MG/ml SYRG IV PRN (11:15)
[2025-04-07] MEDS ORDERED: ACETAMINOPHEN 325 MG TAB PO PRN (11:15)
[2025-04-07 11:49] LABS: Alanine Aminotransferase 25 U/L (7-40); Alkaline Phosphatase 48 U/L (46-116)
[2025-04-07] MEDS: InsuLIN REG 1unit/0.01ml Soln (100units/ml) SC SCH (12:08)
[2025-04-07] MEDS: ACCU-CHEK COMFORT CURVE STRIP VI SCH (12:08)
[2025-04-07 12:38] LABS: Urine Protein, UAD Negative (Negative)
[2025-04-07 12:45] LABS: Opiate Scree,Urine Neg (NEGATIVE)
[2025-04-07 12:48] LABS: Amphetamine Screen, Urine Neg (NEGATIVE); Barbiturate Scree,Urine Neg (NEGATIVE); Benzodiazephine Screen, Urine Neg (NEGATIVE); Cannabinoid Screen, Urine Neg (NEGATIVE); Cocaine Screen, Urine Neg (NEGATIVE); Phencyclidine Screen, Urine Neg (NEGATIVE)
[2025-04-07] MEDS: HYDROcodone-ACET 5/325MG TAB PO PRN (14:17)
[2025-04-07 17:00] VITALS: BP 110/60; PULSE 58; RESP 16; TEMP 97.7; O2SAT 97
[2025-04-07 18:12] VITALS: BP 110/60; PULSE 58; RESP 16; TEMP 97.7; O2SAT 97
[2025-04-07 20:00] VITALS: PULSE 61; RESP 16
[2025-04-07 21:00] VITALS: BP 114/76; PULSE 61; RESP 18; TEMP 98.1; O2SAT 96
[2025-04-07] MEDS: GABAPENTIN 100 MG CAP PO SCH (22:00)
[2025-04-08 01:00] VITALS: BP 102/59; PULSE 56; RESP 16; TEMP 98.3; O2SAT 96
[2025-04-08 05:00] VITALS: BP 111/72; PULSE 63; RESP 17; TEMP 97.7; O2SAT 97
[2025-04-08 06:31] LABS: Hematocrit 38.5 % (36.0-46.0); Hemoglobin 13.5 g/dL (12.2-16.2); Mean Corpuscular Hemoglobin 32.8 pg (28.0-32.0); Mean Corpuscular Volume 93.6 fL (80.0-100.0); Nucleated Red Blood Cells % 0.1 %
[2025-04-08 07:01] LABS: Alanine Aminotransferase 19 U/L (7-40); Albumin 3.8 g/dL (3.2-4.8); Anion Gap 6 (5-15); BUN/Creatinine Ratio 16.0 (10.0-20.0); Blood Urea Nitrogen 16 mg/dL (9-23); Calcium 9.2 mg/dL (8.7-10.4); Carbon Dioxide 27 mmol/L (20-31); Glucose 88 mg/dL (74-106); Sodium 142 mmol/L (136-145); Total Protein 6.3 g/dL (5.7-8.2)
[2025-04-08 07:02] LABS: Bilirubin, Total 0.6 mg/dL (0.2-1.0)
[2025-04-08 07:07] LABS: Alkaline Phosphatase 38 U/L (46-116); Chloride 109 mmol/L (98-107); Potassium 5.2 mmol/L (3.5-5.1)
[2025-04-08 09:00] VITALS: BP 118/77; PULSE 70; RESP 18; TEMP 97.6; O2SAT 96
[2025-04-08] MEDS: PANTOPRAZOLE 40 MG/10 ML VIAL INJ IV SCH (09:22)
--- NOTE | 2025-04-08 11:56 | DVHPN2 ---
Reviewed: Care Plan, H&P, Labs, Medications, Previous Orders, Radiology Changes from previous H/P or p: No Changes Gastrointestinal: Nausea, Vomiting, Abdominal Pain Objective Vitals Vital Signs Date Time Temp Pulse Resp B/P (MAP) Pulse Ox O2 Delivery O2 Flow Rate FiO2 04/08/25 09:00 97.6 70 18 118/77 (91) 96 97.6 04/08/25 07:53 Room Air* 0 21 Intake/Output Intake and Output 04/08/25 07:00 Intake Total 1425 ml Balance 1425 ml Intake Oral 425 ml IV Total 1000 ml # Voids 1 Medications Current Medications Medications Dose Ordered Sig/Amelia Route Start Time Stop Time Status Last Admin Dose Admin Acetaminophen/ Hydrocodone Bitart 1 tab Q4HP PRN PO 04/07/25 11:15 04/08/25 06:56 1 TAB Ondansetron HCl 4 mg Q4HP PRN IV 04/07/25 11:15 Acetaminophen 650 mg Q6HP PRN PO 04/07/25 11:15 Morphine Sulfate 2 mg Q4HPRN PRN IV 04/07/25 11:15 Diagnostic Test (Pha) 1 strip ACHS 04/07/25 11:30 04/08/25 10:56 1 STRIP Insulin Human Regular ACHS SC 04/07/25 11:30 04/07/25 17:23 2 UNITS Dextrose 50 ml UD PRN IV 04/07/25 11:15 Pantoprazole Sodium 40 mg DAILY IV 04/08/25 10:00 04/08/25 09:22 40 MG Gabapentin 100 mg BID PO 04/07/25 22:00 04/08/25 09:22 100 MG Laboratory Results Laboratory Tests 04/08/25 05:25 Chemistry Test 04/08/25 05:25 Albumin 3.8 g/dL (3.2-4.8) Calcium Level 9.2 mg/dL (8.7-10.4) Total Protein 6.3 g/dL (5.7-8.2) LFT Test 04/08/25 05:25 Alanine Aminotransferase (ALT) 19 U/L (7-40) Alkaline Phosphatase 38 U/L (46-116) L Aspartate Amino Transferase (AST) 24 U/L (13-40) Total Bilirubin 0.6 mg/dL (0.2-1.0) Urinalysis Test 04/07/25 12:17 Urine Color Light-yellow (Yellow) Urine Clarity Clear (Clear) Urine pH 6.0 (5.0-9.0) Urine Specific [place] 1.025 (1.001-1.035) Urine Protein Negative (Negative) Urine Ketones Negative (Negative) Urine Blood Negative /uL (Negative) Urine Nitrite Negative (Negative) Urine Bilirubin Negative (Negative) Urine Urobilinogen Normal mg/dL (Negative) Urine Leukocyte Esterase 1+ /uL (Negative) Urine RBC 1 /hpf (0 - 4) Urine Microscopic WBC < 1 /HPF (0-5) Urine Squamous Epithelial Cells Few /hpf (<5) Urine Bacteria None seen /hpf (None Seen) Urine Glucose Normal mg/dL (Normal) Labs and/or images reviewed: Labs reviewed by me, Image(s) reviewed by me Assessment/Plan Assessment/Plan Intractable abdominal pain likely due to biliary colic, labs normal pantoprazole [place] Zofran consult for GI Dr. Vivek Coker Moderate sigmoid diverticulosis SANDIP likely due to ATN Mild pancreatitis lipase 56 History of alcohol abuse History of melanoma cancer status post radiation History of CVA Diabetes Hypertension History of [place] History of cholecystectomy Time Spent 55 minutes Advanced care planning time 20 minutes Patient is full code Plan discussed with: Patient My Orders Orders - KATYA BAUM MD Procedure Category Date Status Time * Gi Dvh Primary Clinician CONS 04/08/25 Verified 11:53 Date of Service: Apr 08, 2025 Billing Provider: KATYA BAUM MD Common Visit Codes: [id number] INP/OBS CARE(HIGH) Secondary Visit Codes: [id number] CARE PLAN 30 MINUTES KATYA BAUM MD Apr 08, 2025 11:56
[2025-04-08 13:00] VITALS: BP 122/76; PULSE 56; RESP 18; TEMP 97.4; O2SAT 98
[2025-04-08 17:00] VITALS: BP 118/76; PULSE 58; RESP 18; TEMP 97.4; O2SAT 99
--- NOTE | 2025-04-08 17:14 | DVHINCON2 ---
Date of service: Apr 08, 2025 Referring Physician Wilman Hart Reason for Consultation Ashley Calixto is a 64-year-old female with past medical history of melanoma cancer status post radiation, CVA, diabetes, hypertension, [place], and cholecystectomy who presents to the ED with abdominal pain for 1 month with nausea and vomiting. Patient reports the pain 9/10 cramping and constant. She states there are no triggering or alleviating factors. Patient reports that she tried to get appointment with her primary but does not have one out until May of this year.Patient also reports that she is compliant with her medications. Patient denies any recent trauma or injury, recent sick contacts, recent t ravels, recent ingestion of spoiled food, chest pain, shortness of breath, fever, chills, lightheadedness, weakness, dizziness, diarrhea, or urinary symptoms. History of Present Illness Ashley Calixto is a 64-year-old female with past medical history of melanoma cancer status post radiation, CVA, diabetes, hypertension, [place], and cholecystectomy who presents to the ED with abdominal pain for 1 month with nausea and vomiting. Patient reports the pain 9/10 cramping and constant. She states there are no triggering or alleviating factors. Patient reports that she tried to get appointment with her primary but does not have one out until May of this year. Patient also reports that she is compliant with her medications. Patient denies any recent trauma or injury, recent sick contacts, recent travels, recent ingestion of spoiled food, chest pain, shortness of breath, fever, chills, lightheadedness, weakness, dizziness, diarrhea, or urinary symptoms. 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 Endocrine: Diabetes Past Medical History Melanoma cancer status post radiation Past Surgical History Past Surgical History: Cholecystectomy Family History: Other (Dad from an [place] and mom has Alzheimer's.) Smoke: No ALCOHOL: occassional Drugs: None Lives: with Family Allergies: Coded Allergies: NO KNOWN ALLERGIES (Unverified , 08/05/23) Current Medications Current Medications Medications (Trade) Dose Ordered Sig/Amelia Route PRN Reason Start Time Stop Time Status Last Admin Pantoprazole Sodium (Protonix) 40 mg DAILY IV 04/08/25 10:00 04/08/25 09:22 Gabapentin (Neurontin Capsule) 100 mg BID PO 04/07/25 22:00 04/08/25 09:22 Vital Signs Vital Signs Date Time Temp Pulse Resp B/P (MAP) Pulse Ox O2 Delivery O2 Flow Rate FiO2 04/08/25 13:00 97.4 56 18 122/76 (91) 98 97.4 04/08/25 07:53 Room Air* 0 21 Physical Exam General Appearance: Alert, Oriented X3, Cooperative, No acute distress HEENT: Atraumatic, PERRLA, EOMI, Mucous membr. moist/pink Respiratory: Normal air movement 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: Normal S1, Normal S2 Abdominal: Normal bowel sounds, Soft Extremities: No clubbing, No cyanosis, No edema, Normal pulses Skin: No significant lesion Neuro: Normal gait, Normal speech, Strength at 5/5 X4 ext, Normal tone, Sensation intact Psych/Mental Status: Mental status NL, Mood NL Labs/Diagnostic Data Labs Test 04/08/25 16:27 04/08/25 05:25 04/07/25 12:18 04/07/25 12:17 Range/Units POC Glucose 110 H 70-106 mg/dl White Blood Count 3.7 L 4.4-10.8 10^3/uL Red Blood Count 4.11 4.0-5.20 10^6/uL Hemoglobin 13.5 12.2-16.2 g/dL Hematocrit 38.5 # 36.0-46.0 % Mean Corpuscular Volume 93.6 80.0-100.0 fL Mean Corpuscular Hemoglobin 32.8 H 28.0-32.0 pg Mean Corpuscular Hemoglobin Concent 35.0 32.0-36.0 g/dL Red Cell Distribution Width 13.0 11.8-14.3 % Platelet Count 159 140-450 10^3/uL Mean Platelet Volume 8.0 6.9-10.8 fL Neutrophils (%) (Auto) 36.6 L 37.0-80.0 % Lymphocytes (%) (Auto) 51.0 H 10.0-50.0 % Monocytes (%) (Auto) 7.9 0.0-12.0 % Eosinophils (%) (Auto) 3.7 0.0-7.0 % Basophils (%) (Auto) 0.8 0.0-2.0 % Neutrophils # (Auto) 1.4 L 1.6-8.6 10 ^3/uL Lymphocytes # (Auto) 1.9 0.4-5.4 10 ^3/uL Monocytes # (Auto) 0.3 0-1.3 10 ^3/uL Eosinophils # (Auto) 0.1 0-0.8 10 ^3/uL Basophils # (Auto) 0 0-0.2 10 ^3/uL Nucleated Red Blood Cells 0.1 % Sodium Level 142 136-145 mmol/L Potassium Level 5.2 H 3.5-5.1 mmol/L Chloride Level 109 H 98-107 mmol/L Carbon Dioxide Level 27 20-31 mmol/L Anion Gap 6 5-15 Blood Urea Nitrogen 16 9-23 mg/dL Creatinine 1.00 0.550-1.02 mg/dL Glomerular Filtration Rate Calc 63 >90 mL/min BUN/Creatinine Ratio 16.0 10.0-20.0 Serum Glucose 88 74-106 mg/dL Calcium Level 9.2 8.7-10.4 mg/dL Total Bilirubin 0.6 0.2-1.0 mg/dL Aspartate Amino Transferase (AST) 24 13-40 U/L Alanine Aminotransferase (ALT) 19 7-40 U/L Alkaline Phosphatase 38 L 46-116 U/L Total Protein 6.3 5.7-8.2 g/dL Albumin 3.8 3.2-4.8 g/dL Urine Opiates Screen Neg NEGATIVE Urine Fentanyl Screen Neg NEGATIVE Urine Barbiturates Screen Neg NEGATIVE Urine Phencyclidine Screen Neg NEGATIVE Urine Amphetamines Screen Neg NEGATIVE Urine Benzodiazepines Screen Neg NEGATIVE Urine Cocaine Screen Neg NEGATIVE Urine Cannabinoids Screen Neg NEGATIVE Urine Color Light-yellow Yellow Urine Clarity Clear Clear Urine pH 6.0 5.0-9.0 Urine Specific [place] 1.025 1.001-1.035 Urine Protein Negative Negative Urine Ketones Negative Negative Urine Blood Negative Negative /uL Urine Nitrite Negative Negative Urine Bilirubin Negative Negative Urine Urobilinogen Normal Negative mg/dL Urine Leukocyte Esterase 1+ Negative /uL Urine RBC 1 0 - 4 /hpf Urine Microscopic WBC < 1 0-5 /HPF Urine Squamous Epithelial Cells Few <5 /hpf Urine Bacteria None seen None Seen /hpf Urine Glucose Normal Normal mg/dL Test 04/07/25 08:03 Range/Units Hemoglobin A1c 5.2 <5.7 % A1C Lipase 56 H 12-53 U/L Abd CT Scan IMPRESSION: 1. Moderate sigmoid diverticulosis Normal appendix Problems(with codes): (1) Gastroenteritis (2) Acute pancreatitis (3) Abdominal pain Plan/Recommendation PLAN Patient is on a cardiac diet, I am going to change to full liquid diet We are going to continue to monitor labs including lipase in a.m. Check right upper quadrant ultrasound rule out cholelithiasis Patient is on IV PPI and pain control and IV fluid hydration I will follow up patient with you review above results and then decide about elective panendoscopy Plan discussed with: Patient, Other ROSEMARIE BLAIR MD Apr 08, 2025 17:14
--- NOTE | 2025-04-08 17:56 | DVH ---
ULTRASOUND ABDOMEN, LIMITED RIGHT UPPER QUADRANT: REASON FOR EXAM: elevated lipase TECHNIQUE: Real-time sector scans in the transverse and longitudinal planes were obtained through th e right upper quadrant of the abdomen. FINDINGS: The liver is of normal size and contour. There is hepatopetal flow in the portal vein. The re is no intrahepatic nor extrahepatic biliary ductal dilatation. The common bile duct measures 6 mm . The gallbladder is surgically absent. There is no sonographic Slade's sign. The visualized portion of the pancreas is unremarkable. The right kidney measures 9.9 cm. No hydronephrosis or nephrolithiasis is identified. There is no e vidence of right renal mass or cyst. The visualized portions of the abdominal aorta demonstrate no evidence of aneurysmal dilatation. The visualized inferior vena cava is unremarkable. There is no free fluid identified in the right upper quadrant. IMPRESSION: Absent gallbladder. No acute finding in the right upper quadrant.
[2025-04-08 21:00] VITALS: BP 127/72; PULSE 93; RESP 17; TEMP 98.8; O2SAT 91
[2025-04-09] VITALS (7 sets, daily range): BP systolic 113–133; BP diastolic 76–84; PULSE 51–58; RESP 15–17; TEMP 97.5–98.1; O2SAT 95–99
[2025-04-09 06:31] LABS: Alanine Aminotransferase 18 U/L (7-40); Anion Gap 7 (5-15); BUN/Creatinine Ratio 12.0 (10.0-20.0); Blood Urea Nitrogen 11 mg/dL (9-23); Calcium 9.3 mg/dL (8.7-10.4); Carbon Dioxide 28 mmol/L (20-31); Chloride 107 mmol/L (98-107); Glucose 92 mg/dL (74-106); Lipase 43 U/L (12-53); Potassium 4.9 mmol/L (3.5-5.1); Sodium 142 mmol/L (136-145)
[2025-04-09 06:32] LABS: Total Protein 6.5 g/dL (5.7-8.2)
[2025-04-09 06:33] LABS: Albumin 4.1 g/dL (3.2-4.8); Amylase 51 U/L (30-118); Bilirubin, Total 0.4 mg/dL (0.2-1.0)
[2025-04-09 06:36] LABS: Alkaline Phosphatase 42 U/L (46-116); Hematocrit 41.2 % (36.0-46.0); Hemoglobin 14.2 g/dL (12.2-16.2); Mean Corpuscular Hemoglobin 32.3 pg (28.0-32.0); Mean Corpuscular Volume 93.5 fL (80.0-100.0); Nucleated Red Blood Cells % 0.1 %
--- NOTE | 2025-04-09 09:22 | DVHPN2 ---
Reviewed: Care Plan, H&P, Labs, Medications, Previous Orders, Radiology Changes from previous H/P or p: No Changes Gastrointestinal: Nausea, Vomiting, Abdominal Pain Objective Vitals Vital Signs Date Time Temp Pulse Resp B/P (MAP) Pulse Ox O2 Delivery O2 Flow Rate FiO2 04/09/25 09:00 97.9 53 15 114/76 (89) 98 97.9 04/08/25 20:00 Room Air* 0 21 Intake/Output Intake and Output 04/09/25 07:00 Intake Total 1960 ml Balance 1960 ml Intake Oral 1960 ml # Voids 7 Medications Current Medications Medications Dose Ordered Sig/Amelia Route Start Time Stop Time Status Last Admin Dose Admin Acetaminophen/ Hydrocodone Bitart 1 tab Q4HP PRN PO 04/07/25 11:15 04/09/25 05:35 1 TAB Ondansetron HCl 4 mg Q4HP PRN IV 04/07/25 11:15 Acetaminophen 650 mg Q6HP PRN PO 04/07/25 11:15 Morphine Sulfate 2 mg Q4HPRN PRN IV 04/07/25 11:15 Diagnostic Test (Pha) 1 strip ACHS 04/07/25 11:30 04/08/25 17:27 1 STRIP Insulin Human Regular ACHS SC 04/07/25 11:30 04/07/25 17:23 2 UNITS Dextrose 50 ml UD PRN IV 04/07/25 11:15 Pantoprazole Sodium 40 mg DAILY IV 04/08/25 10:00 04/08/25 09:22 40 MG Gabapentin 100 mg BID PO 04/07/25 22:00 04/08/25 21:11 100 MG Laboratory Results Laboratory Tests 04/09/25 05:23 Chemistry Test 04/09/25 05:23 Albumin 4.1 g/dL (3.2-4.8) Calcium Level 9.3 mg/dL (8.7-10.4) Total Protein 6.5 g/dL (5.7-8.2) Lipid panel Test 04/09/25 05:23 Lipase 43 U/L (12-53) LFT Test 04/09/25 05:23 Alanine Aminotransferase (ALT) 18 U/L (7-40) Alkaline Phosphatase 42 U/L (46-116) L Aspartate Amino Transferase (AST) 22 U/L (13-40) Total Bilirubin 0.4 mg/dL (0.2-1.0) Urinalysis Test 04/07/25 12:17 Urine Color Light-yellow (Yellow) Urine Clarity Clear (Clear) Urine pH 6.0 (5.0-9.0) Urine Specific [place] 1.025 (1.001-1.035) Urine Protein Negative (Negative) Urine Ketones Negative (Negative) Urine Blood Negative /uL (Negative) Urine Nitrite Negative (Negative) Urine Bilirubin Negative (Negative) Urine Urobilinogen Normal mg/dL (Negative) Urine Leukocyte Esterase 1+ /uL (Negative) Urine RBC 1 /hpf (0 - 4) Urine Microscopic WBC < 1 /HPF (0-5) Urine Squamous Epithelial Cells Few /hpf (<5) Urine Bacteria None seen /hpf (None Seen) Urine Glucose Normal mg/dL (Normal) Labs and/or images reviewed: Labs reviewed by me, Image(s) reviewed by me Assessment/Plan Assessment/Plan Intractable abdominal pain likely due to biliary colic, labs normal pantoprazole [place] Zofran consult for GI Dr. Vivek Coker appreciated Moderate sigmoid diverticulosis SANDIP likely due to ATN Mild pancreatitis lipase 56 History of alcohol abuse History of melanoma cancer status post radiation History of CVA Diabetes Hypertension History of [place] History of cholecystectomy Time Spent 55 minutes Advanced care planning time 20 minutes Patient is full code Liquid diet. Plan discussed with: Patient My Orders Orders - KATYA BAUM MD Procedure Category Date Status Time * Gi Dvh Plating Department Helper CONS 04/08/25 Transmitted 11:53 Date of Service: Apr 09, 2025 Billing Provider: KATYA BAUM MD Common Visit Codes: [id number] INP/OBS CARE(HIGH) KATYA BAUM MD Apr 09, 2025 09:22
--- NOTE | 2025-04-09 12:00 | DVHPN2 ---
Progress Note Date Seen: Apr 09, 2025 Resident Creating Document: SARAH PIERCE RESIDENT Medical Necessity Reason Pt with a Central, PICC or Fol: No Subjective Review of Systems Patient is a 64-year-old female with past medical history of melanoma, CVA, type 2 diabetes, hypertension, MS without intervention, cholecystectomy who came to the ER for abdominal pain that she has been experiencing for the past 1 month associated with nausea and vomiting, describes it as a cramping abdominal pain rates it as 9/10 at its worse. At the time of my evaluation patient denies any active ongoing abdominal pain. Patient also notes having some constipation. Of note, patient was on Ozempic which she stopped taking about 4 months ago as she was told by her PCP that it is affecting her pancreas Lipase down trended from 56-43 Serum amylase 51 Objective vital signs Vital Sign Date Time Temp Pulse Resp B/P (MAP) Pulse Ox O2 Delivery O2 Flow Rate FiO2 04/09/25 09:00 97.9 53 15 114/76 (89) 98 97.9 04/08/25 20:00 Room Air* 0 21 Total Intake and Output 04/08/25 04/08/25 04/09/25 15:00 23:00 07:00 Intake Total 360 ml 800 ml 800 ml Balance 360 ml 800 ml 800 ml medications Current Medications Medications Dose Ordered Sig/Amelia Route Start Time Stop Time Status Last Admin Dose Admin Acetaminophen/ Hydrocodone Bitart 1 tab Q4HP PRN PO 04/07/25 11:15 04/09/25 05:35 1 TAB Ondansetron HCl 4 mg Q4HP PRN IV 04/07/25 11:15 Acetaminophen 650 mg Q6HP PRN PO 04/07/25 11:15 Morphine Sulfate 2 mg Q4HPRN PRN IV 04/07/25 11:15 Diagnostic Test (Pha) 1 strip ACHS 04/07/25 11:30 04/08/25 17:27 1 STRIP Insulin Human Regular ACHS SC 04/07/25 11:30 04/07/25 17:23 2 UNITS Dextrose 50 ml UD PRN IV 04/07/25 11:15 Pantoprazole Sodium 40 mg DAILY IV 04/08/25 10:00 04/09/25 10:00 40 MG Gabapentin 100 mg BID PO 04/07/25 22:00 04/09/25 10:00 100 MG Examination General Appearance: Cooperative. Well developed. Well nourished. NAD Head Exam: Normal inspection Neck Exam: Normal inspection. Non-tender. Normal alignment Pulmonary/Respiratory: Chest non-tender. Clear bilateral breath sounds, 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/Chest: Regular rate and rhythm. No murmurs. No JVD. Abdominal Exam: Normal bowel sounds. Soft. normal abdomen, no visible veins, mild generalized tenderness to palpation No hepatospenomegaly. No masses Ankle Exam: Negative ankle edema Neuro/Mental Status: A&O x4. Coherent. Skin Exam: Normal inspection. Normal color. Warm. Dry laboratory and microbiology Laboratory Tests 04/09/25 05:23 Test 04/09/25 05:23 Range/Units Serum Glucose 92 74-106 mg/dL Labs and/or images reviewed: Labs reviewed by me, Image(s) reviewed by me Problem List/Assessment/Plan Problem List/Assessment/Plan Acute intractable abdominal pain Probable acute versus chronic pancreatitis Gastroenteritis History of melanoma History of CVA History of type 2 diabetes Plan: Full liquid diet IV Protonix 40 mg daily IV hydration Lipase downtrending Carafate 1 g b.i.d. NPO at midnight Scheduled for EGD tomorrow Thank you so much for the opportunity to consult on your patient. GI team will follow the patient. In case of any questions or concerns please feel free to reach out. Plan discussed with Dr. Coker Plan discussed with: Patient, Other (RN) SARAH PIERCE RESIDENT Apr 09, 2025 12:00
[2025-04-09] MEDS: LACTULOSE 20Gm/30ML SOLN PO ONE (13:39)
[2025-04-09] MEDS: SUCRALFATE 1 GM/10 ML ORAL SUSP PO SCH (22:14)
[2025-04-09] MEDS: LACTULOSE 20Gm/30ML SOLN PO PRN (22:16)
[2025-04-10] VITALS (8 sets, daily range): BP systolic 100–119; BP diastolic 64–78; PULSE 48–77; RESP 15–17; TEMP 97.4–98.1; O2SAT 92–98
--- NOTE | 2025-04-10 05:55 | DVH ---
CHEST RADIOGRAPH Indication: pre op, pain Technique: Single frontal view of the chest was obtained COMPARISON: None FINDINGS: Lines and Tubes: None Lungs: Clear Pleura: No effusion. No pneumothorax. Cardiomediastinal contours: Unremarkable Bones: Unremarkable IMPRESSION: No acute disease.
[2025-04-10 06:40] LABS: INR 0.98 (0.9-1.15); Partial Thromboplastin Time 28.1 SEC (24.5-34.5); Prothrombin Time 10.4 sec (9.3-11.8)
--- NOTE | 2025-04-10 07:36 | ECG ---
[facility] Test Date: 2025-04-10 Test Time: 04:35:36 Pat Name: GRACIELA ANDERSON Department: Respiratoy Room: 0214 A Gender: F Trim Carpenter: GP : 1960 Requested By: ANTONIO ESTEVEZ Order Number: [id number] Reading MD: Rah Casarez Measurements Intervals [place] Rate: 49 P: 44 VA: 147 QRS: 50 QRSD: 87 T: 41 QT: 490 QTc: 443 Interpretive Statements Sinus bradycardia Electronically Signed On 04-12-2025 14:31:51 PDT by Rah Casarez Please click the below link to view image of tracing.
[2025-04-10 10:25] LABS: Hematocrit 44.0 % (36.0-46.0); Hemoglobin 15.0 g/dL (12.2-16.2); Mean Corpuscular Hemoglobin 32.0 pg (28.0-32.0); Mean Corpuscular Volume 93.8 fL (80.0-100.0); Nucleated Red Blood Cells % 0.2 %
[2025-04-10 10:31] LABS: Alanine Aminotransferase 21 U/L (7-40); Albumin 4.2 g/dL (3.2-4.8); Anion Gap 8 (5-15); BUN/Creatinine Ratio 8.9 (10.0-20.0); Bilirubin, Total 0.5 mg/dL (0.2-1.0); Blood Urea Nitrogen 9 mg/dL (9-23); Calcium 9.3 mg/dL (8.7-10.4); Carbon Dioxide 30 mmol/L (20-31); Chloride 106 mmol/L (98-107); Glucose 91 mg/dL (74-106); Potassium 4.4 mmol/L (3.5-5.1); Sodium 144 mmol/L (136-145); Total Protein 6.9 g/dL (5.7-8.2)
[2025-04-10 10:33] LABS: Alkaline Phosphatase 39 U/L (46-116)
--- NOTE | 2025-04-10 10:51 | DVHPN2 ---
Reviewed: Care Plan, H&P, Labs, Medications, Previous Orders, Radiology Changes from previous H/P or p: No Changes Gastrointestinal: Nausea, Vomiting, Abdominal Pain Objective Vitals Vital Signs Date Time Temp Pulse Resp B/P (MAP) Pulse Ox O2 Delivery O2 Flow Rate FiO2 04/10/25 09:00 98.0 62 15 111/71 (84) 97 98.0 04/09/25 20:00 Room Air* 0 21 Intake/Output Intake and Output 04/10/25 07:00 Intake Total 975 ml Balance 975 ml Intake Oral 975 ml # Voids 2 Medications Current Medications Medications Dose Ordered Sig/Amelia Route Start Time Stop Time Status Last Admin Dose Admin Acetaminophen/ Hydrocodone Bitart 1 tab Q4HP PRN PO 04/07/25 11:15 04/09/25 20:42 1 TAB Ondansetron HCl 4 mg Q4HP PRN IV 04/07/25 11:15 Acetaminophen 650 mg Q6HP PRN PO 04/07/25 11:15 Morphine Sulfate 2 mg Q4HPRN PRN IV 04/07/25 11:15 Diagnostic Test (Pha) 1 strip ACHS 04/07/25 11:30 04/10/25 05:53 1 STRIP Insulin Human Regular ACHS SC 04/07/25 11:30 04/07/25 17:23 2 UNITS Dextrose 50 ml UD PRN IV 04/07/25 11:15 Pantoprazole Sodium 40 mg DAILY IV 04/08/25 10:00 04/10/25 10:25 40 MG Gabapentin 100 mg BID PO 04/07/25 22:00 04/09/25 22:15 100 MG Lactulose 15 ml BID PRN PO 04/09/25 13:15 04/09/25 22:16 15 ML Sucralfate 1 gm BID@0600,2200 PO 04/09/25 22:00 04/09/25 22:14 1 GM Laboratory Results Laboratory Tests 04/10/25 05:39 Chemistry Test 04/10/25 05:39 Albumin 4.2 g/dL (3.2-4.8) Calcium Level 9.3 mg/dL (8.7-10.4) Total Protein 6.9 g/dL (5.7-8.2) Coagulation Test 04/10/25 05:39 Prothrombin Time 10.4 sec (9.3-11.8) Prothrombin Time INR 0.98 (0.9-1.15) Activated Partial Thromboplast Time 28.1 SEC (24.5-34.5) LFT Test 04/10/25 05:39 Alanine Aminotransferase (ALT) 21 U/L (7-40) Alkaline Phosphatase 39 U/L (46-116) L Aspartate Amino Transferase (AST) 25 U/L (13-40) Total Bilirubin 0.5 mg/dL (0.2-1.0) Urinalysis Test 04/07/25 12:17 Urine Color Light-yellow (Yellow) Urine Clarity Clear (Clear) Urine pH 6.0 (5.0-9.0) Urine Specific [place] 1.025 (1.001-1.035) Urine Protein Negative (Negative) Urine Ketones Negative (Negative) Urine Blood Negative /uL (Negative) Urine Nitrite Negative (Negative) Urine Bilirubin Negative (Negative) Urine Urobilinogen Normal mg/dL (Negative) Urine Leukocyte Esterase 1+ /uL (Negative) Urine RBC 1 /hpf (0 - 4) Urine Microscopic WBC < 1 /HPF (0-5) Urine Squamous Epithelial Cells Few /hpf (<5) Urine Bacteria None seen /hpf (None Seen) Urine Glucose Normal mg/dL (Normal) Labs and/or images reviewed: Labs reviewed by me, Image(s) reviewed by me Assessment/Plan Assessment/Plan Intractable abdominal pain likely due to biliary colic, labs normal pantoprazole [place] Zofran consult for GI Dr. Vivek Coker appreciated patient getting EGD today Moderate sigmoid diverticulosis SANDIP likely due to ATN Mild pancreatitis lipase 56 History of alcohol abuse History of melanoma cancer status post radiation History of CVA Diabetes Hypertension History of [place] History of cholecystectomy Time Spent 55 minutes Advanced care planning time 20 minutes Patient is full code Liquid diet. Plan discussed with: Patient My Orders Orders - KATYA BAUM MD Procedure Category Date Status Time Lactulose Oral PHA 04/09/25 In Process 13:15 Chest Xray 1 View XY 04/10/25 Resulted 07:00 Date of Service: Apr 10, 2025 Billing Provider: KATYA BAUM MD Common Visit Codes: [id number] INP/OBS CARE(HIGH) KATYA BAUM MD Apr 10, 2025 10:51
[2025-04-10] MEDS ORDERED: SODIUM CHLORIDE LOCK 10 ML ONE (11:14)
[2025-04-10] MEDS ORDERED: fentaNYL CITRATE 100 MCG/2 ML VL ONE (11:14)
[2025-04-10] MEDS ORDERED: diphenhdrAMINE HCL 50 MG/1 ML VL ONE (11:15)
[2025-04-10] MEDS ORDERED: LIDOCAINE VISCOUS 2% 15ML UD ONE (11:15)
[2025-04-10] MEDS ORDERED: MIDAZOLAM HCL 5 MG/ML-1ML VIAL ONE (11:15)
[2025-04-10] MEDS: LIDOCAINE VISCOUS 2% 15ML UD MT ONE (12:35)
--- NOTE | 2025-04-10 12:50 | DVHOP2 ---
Operative Report DATE OF OPERATION: 04/10/25 PROCEDURE: Upper Endoscopy with biopsy. PREOPERATIVE INDICATION: The patient is a 64 -year-old female undergoing endoscopy for nausea and vomiting dyspepsia POSTOPERATIVE DIAGNOSES: 1. 1 cm sliding-type hiatal hernia with no significant erosive esophagitis 2. Moderate gastroduodenitis with hyperemia erythema PROCEDURE PERFORMED BY: Rosemarie Coker GI NURSE: Xin SCOPE: Olympus videoendoscope. ASA CLASS: 2. PREOPERATIVE MEDICATIONS: Versed 3 mg, Fentanyl 75 mcg, Benadryl 50 mg I administered moderate sedation throughout this _8_ minutes procedure. An independent trained observer pushed medications at my direction, and monitored the patient's level of consciousness and physiological status throughout. PROCEDURE IN DETAIL: After obtaining an informed consent, the patient was placed on left lateral decubitus position. The patient was then sedated with the above medications. A bite block was placed between she teeth. The endoscope was then passed through the oropharynx, into the esophagus, and through the stomach and pylorus up to the second and third part of the duodenum. The endoscope was then withdrawn. The 2nd and 3rd part of the duodenal were normal. Duodenal bulb showed duodenitis with hyperemia erythema Duodenal biopsies were obtained. The pre-pyloric area antrum and body showed [id number] gastritis with hyperemia erythema There was about 150 mL of bile in the stomach. This was aspirated. Gastric biopsies were obtained The endoscope was then withdrawn into distal esophagus where the patient had a slightly irregular squamocolumnar junction 5-10 mm extension of columnar epithelium into the distal esophagus The remaining distal and proximal esophagus and oropharynx were unremarkable. There was no significant esophagitis The patient tolerated the procedure well without difficulty. COMPLICATIONS : None SPECIMENS: Duodenal biopsies Gastric biopsies DISPOSITION: Transfer back to the floor Stable PLAN: 1. Await for biopsy result 2. Will place pt on Protonix 40 mg bid p.o. 3. Carafate 1 g p.o. twice a day 4. Resume full liquid diet advance as tolerated; lipase has normal 5. Discharge planning as per hospitalist 6. Outpatient follow up with me in 4-6 weeks to discuss elective screening colonoscopy ROSEMARIE COKER MD Apr 10, 2025 12:50
[2025-04-10] MEDS: PANTOPRAZOLE 40 MG TAB PO SCH (17:52)
[2025-04-10] MEDS: SUCRALFATE 1 GM/10 ML ORAL SUSP PO SCH (22:04)
[2025-04-11 01:00] VITALS: BP 107/65; PULSE 60; RESP 16; TEMP 98.1; O2SAT 95
[2025-04-11 05:00] VITALS: BP 113/56; PULSE 66; RESP 18; TEMP 97.7; O2SAT 95
[2025-04-11 08:00] VITALS: PULSE 63; RESP 16; O2SAT 96
[2025-04-11 08:43] VITALS: BP 110/71; PULSE 63; RESP 16; TEMP 97.9; O2SAT 99
--- NOTE | 2025-04-11 09:47 | DVHPN2 ---
Reviewed: Care Plan, H&P, Labs, Medications, Previous Orders, Radiology Changes from previous H/P or p: No Changes Gastrointestinal: Nausea, Vomiting, Abdominal Pain Objective Vitals Vital Signs Date Time Temp Pulse Resp B/P (MAP) Pulse Ox O2 Delivery O2 Flow Rate FiO2 04/11/25 08:43 97.9 63 16 110/71 (84) 99 97.9 04/10/25 20:00 Room Air* 0 21 Intake/Output Intake and Output 04/11/25 07:00 Intake Total 1060 ml Balance 1060 ml Intake Oral 1050 ml IV Total 10 ml # Voids 4 Medications Current Medications Medications Dose Ordered Sig/Amelia Route Start Time Stop Time Status Last Admin Dose Admin Acetaminophen/ Hydrocodone Bitart 1 tab Q4HP PRN PO 04/07/25 11:15 04/09/25 20:42 1 TAB Ondansetron HCl 4 mg Q4HP PRN IV 04/07/25 11:15 Acetaminophen 650 mg Q6HP PRN PO 04/07/25 11:15 Morphine Sulfate 2 mg Q4HPRN PRN IV 04/07/25 11:15 Diagnostic Test (Pha) 1 strip ACHS 04/07/25 11:30 04/11/25 06:05 1 STRIP Insulin Human Regular ACHS SC 04/07/25 11:30 04/07/25 17:23 2 UNITS Dextrose 50 ml UD PRN IV 04/07/25 11:15 Gabapentin 100 mg BID PO 04/07/25 22:00 04/10/25 22:03 100 MG Lactulose 15 ml BID PRN PO 04/09/25 13:15 04/09/25 22:16 15 ML Pantoprazole Sodium 40 mg BID@0600,1700 PO 04/10/25 17:00 04/11/25 05:54 40 MG Sucralfate 1 gm BID@0600,2200 PO 04/10/25 22:00 04/11/25 05:54 1 GM Laboratory Results Laboratory Tests 04/10/25 05:39 Urinalysis Test 04/07/25 12:17 Urine Color Light-yellow (Yellow) Urine Clarity Clear (Clear) Urine pH 6.0 (5.0-9.0) Urine Specific [place] 1.025 (1.001-1.035) Urine Protein Negative (Negative) Urine Ketones Negative (Negative) Urine Blood Negative /uL (Negative) Urine Nitrite Negative (Negative) Urine Bilirubin Negative (Negative) Urine Urobilinogen Normal mg/dL (Negative) Urine Leukocyte Esterase 1+ /uL (Negative) Urine RBC 1 /hpf (0 - 4) Urine Microscopic WBC < 1 /HPF (0-5) Urine Squamous Epithelial Cells Few /hpf (<5) Urine Bacteria None seen /hpf (None Seen) Urine Glucose Normal mg/dL (Normal) Labs and/or images reviewed: Labs reviewed by me, Image(s) reviewed by me Assessment/Plan Assessment/Plan Intractable abdominal pain likely due to biliary colic, labs normal pantoprazole [place] Zofran consult for GI Dr. Vivek Coker appreciated , Mild gastroduodenitis by EGD by Dr. Vivek Coker 04/10/2025 Moderate sigmoid diverticulosis SANDIP likely due to ATN Mild pancreatitis lipase 56 History of alcohol abuse History of melanoma cancer status post radiation History of CVA Diabetes Hypertension History of CT History of cholecystectomy Time Spent 55 minutes Advanced care planning time 20 minutes Patient is full code Liquid diet. Plan discussed with: Patient Date of Service: Apr 11, 2025 Billing Provider: KATYA BAUM MD Common Visit Codes: [id number] INP/OBS CARE(HIGH) KATYA BAUM MD Apr 11, 2025 09:47
[2025-04-11] MEDS ORDERED: PANT40T PO (09:48)
[2025-04-11] MEDS ORDERED: SUCR1TAB31 PO (09:48)
--- NOTE | 2025-04-11 09:52 | DVHDS2 ---
Discharge Summary Date of Admission Apr 07, 2025 at 11:04 Date of Discharge: Apr 11, 2025 Admitting Diagnosis Epigastric abdominal pain Wounds: EGD Labs/Diagnostic Data: Laboratory Results Test 04/11/25 05:34 04/10/25 05:39 04/09/25 05:23 04/07/25 12:18 POC Glucose 97 mg/dl (70-106) White Blood Count 3.6 10^3/uL (4.4-10.8) Red Blood Count 4.69 10^6/uL (4.0-5.20) Hemoglobin 15.0 g/dL (12.2-16.2) Hematocrit 44.0 % (36.0-46.0) Mean Corpuscular Volume 93.8 fL (80.0-100.0) Mean Corpuscular Hemoglobin 32.0 pg (28.0-32.0) Mean Corpuscular Hemoglobin Concent 34.1 g/dL (32.0-36.0) Red Cell Distribution Width 12.9 % (11.8-14.3) Platelet Count 189 10^3/uL (140-450) Mean Platelet Volume 8.2 fL (6.9-10.8) Neutrophils (%) (Auto) 39.4 % (37.0-80.0) Lymphocytes (%) (Auto) 47.5 % (10.0-50.0) Monocytes (%) (Auto) 7.6 % (0.0-12.0) Eosinophils (%) (Auto) 4.8 % (0.0-7.0) Basophils (%) (Auto) 0.7 % (0.0-2.0) Neutrophils # (Auto) 1.4 10 ^3/uL (1.6-8.6) Lymphocytes # (Auto) 1.7 10 ^3/uL (0.4-5.4) Monocytes # (Auto) 0.3 10 ^3/uL (0-1.3) Eosinophils # (Auto) 0.2 10 ^3/uL (0-0.8) Basophils # (Auto) 0 10 ^3/uL (0-0.2) Nucleated Red Blood Cells 0.2 % Prothrombin Time 10.4 sec (9.3-11.8) Prothrombin Time INR 0.98 (0.9-1.15) Activated Partial Thromboplast Time 28.1 SEC (24.5-34.5) Sodium Level 144 mmol/L (136-145) Potassium Level 4.4 mmol/L (3.5-5.1) Chloride Level 106 mmol/L (98-107) Carbon Dioxide Level 30 mmol/L (20-31) Anion Gap 8 (5-15) Blood Urea Nitrogen 9 mg/dL (9-23) Creatinine 1.01 mg/dL (0.550-1.02) Glomerular Filtration Rate Calc 63 mL/min (>90) BUN/Creatinine Ratio 8.9 (10.0-20.0) Serum Glucose 91 mg/dL (74-106) Calcium Level 9.3 mg/dL (8.7-10.4) Total Bilirubin 0.5 mg/dL (0.2-1.0) Aspartate Amino Transferase (AST) 25 U/L (13-40) Alanine Aminotransferase (ALT) 21 U/L (7-40) Alkaline Phosphatase 39 U/L (46-116) Total Protein 6.9 g/dL (5.7-8.2) Albumin 4.2 g/dL (3.2-4.8) Amylase Level 51 U/L (30-118) Lipase 43 U/L (12-53) Urine Opiates Screen Neg (NEGATIVE) Urine Fentanyl Screen Neg (NEGATIVE) Urine Barbiturates Screen Neg (NEGATIVE) Urine Phencyclidine Screen Neg (NEGATIVE) Urine Amphetamines Screen Neg (NEGATIVE) Urine Benzodiazepines Screen Neg (NEGATIVE) Urine Cocaine Screen Neg (NEGATIVE) Urine Cannabinoids Screen Neg (NEGATIVE) Test 04/07/25 12:17 04/07/25 08:03 Urine Color Light-yellow (Yellow) Urine Clarity Clear (Clear) Urine pH 6.0 (5.0-9.0) Urine Specific [place] 1.025 (1.001-1.035) Urine Protein Negative (Negative) Urine Ketones Negative (Negative) Urine Blood Negative /uL (Negative) Urine Nitrite Negative (Negative) Urine Bilirubin Negative (Negative) Urine Urobilinogen Normal mg/dL (Negative) Urine Leukocyte Esterase 1+ /uL (Negative) Urine RBC 1 /hpf (0 - 4) Urine Microscopic WBC < 1 /HPF (0-5) Urine Squamous Epithelial Cells Few /hpf (<5) Urine Bacteria None seen /hpf (None Seen) Urine Glucose Normal mg/dL (Normal) Hemoglobin A1c 5.2 % A1C (<5.7) Other Laboratory Tests 04/10/25 05:39 Brief Hx & Hospital Course: 64-year-old female with a history of diabetes hypertension [place] CVA history of cholecystectomy chronic alcohol abuse came in for epigastric abdominal pain found to have mild pancreatitis lipase of 56 treated with the IV fluids NPO EGD by Dr. Vivek Coker showed mild gastric duodenitis placed on pantoprazole Carafate discharged home at the time of discharge patient is asymptomatic and afebrile with stable vital signs. Prescription for pantoprazole Carafate transmitted to the [facility]. She will follow up with GI Dr. Vivek Coker in two weeks Consults/Reason for consult GI Dr. Vivek Coker Operations or Procedures EGD Condition at Discharge: Fair Final Diagnosis/Problems List Intractable abdominal pain likely due to biliary colic, labs normal pantoprazole [place] Zofran consult for GI Dr. Vivek Coker appreciated , Mild gastroduodenitis by EGD by Dr. Vivek Coker 04/10/2025 Moderate sigmoid diverticulosis SANDIP likely due to ATN Mild pancreatitis lipase 56 History of alcohol abuse History of melanoma cancer status post radiation History of CVA Diabetes Hypertension History of [place] History of cholecystectomy Discharge Disposition: Home Discharge Instruct/Medications Diet: Regular Activity: No Restrictions, As Tolerated Follow Up/Referral: Use Medications as prescribed Follow up with your primary Dr Follow up with GI Dr. Vivek Coker in two weeks Medications: Pantoprazole Carafate Transmitted to [facility] pharmacy Scheduled Pantoprazole Sodium Sesquihydr (Pantoprazole Sodium), 40 MG PO BID Sucralfate (Carafate), 1 GM PO QID 39 (Time taken for discharge summary 39 minutes) Discharge Statement: "Patient was advised to return to the ER or call 911 if any headaches, dizziness, shortness of breath, chest pain, abdominal pain, bleeding, fevers, or worsening of medical condition. Patient was counseled about treatment plan, medications, possible side effects, patientverbalized understanding. All questions were answered to the best of my ability. This discharge took greater then 30 minutes in planning, reviewing documentation, counseling the patient, and discussing with other team members." ASSESSMENT ASSESSMENT Hospital Course Uneventful Assessment Intractable abdominal pain likely due to biliary colic, labs normal pantoprazole [place] Zofran consult for GI Dr. Vivek Coker appreciated , Mild gastroduodenitis by EGD by Dr. Vivek Coker 04/10/2025 Moderate sigmoid diverticulosis SANDIP likely due to ATN Mild pancreatitis lipase 56 History of alcohol abuse History of melanoma cancer status post radiation History of CVA Diabetes Hypertension History of [place] History of cholecystectomy Date of Service: Apr 11, 2025 Billing Provider: KATYA BAUM MD Common Visit Codes: [id number] DISCH DAY >30min KATYA BAUM MD Apr 11, 2025 09:52
[2025-04-11 11:26] VITALS: BP 110/71; PULSE 63; RESP 16; TEMP 97.9; O2SAT 99
[2025-04-11 12:51] VITALS: BP 123/80; PULSE 61; RESP 17; TEMP 97.9; O2SAT 99
== END 2025-04-11 12:28 | disposition home or self-care (01) ==
LOC: ER 07:20 → OVERFLOW 11:04 → CENTRAL 16:46
PROVIDERS: ADMIT Family Medicine; ATTEND Family Medicine
PROC: 0DB68ZX Excision of Stomach, Via Natural or Artificial Opening Endoscopic, Diagnostic (ICD-10-PCS; 2025-04-10)
PROC: 0DB98ZX Excision of Duodenum, Via Natural or Artificial Opening Endoscopic, Diagnostic (ICD-10-PCS; principal; 2025-04-10 12:30)
DX: K80.50 Calculus of bile duct without cholangitis or cholecystitis without obstruction (principal); N17.0 Acute kidney failure with tubular necrosis; K85.90 Acute pancreatitis without necrosis or infection, unspecified; K29.70 Gastritis, unspecified, without bleeding; K57.30 Diverticulosis of large intestine without perforation or abscess without bleeding; E11.9 Type 2 diabetes mellitus without complications; I10 Essential (primary) hypertension; K29.90 Gastroduodenitis, unspecified, without bleeding; K29.80 Duodenitis without bleeding; K44.9 Diaphragmatic hernia without obstruction or gangrene; K52.9 Noninfective gastroenteritis and colitis, unspecified; Z86.73 Personal history of transient ischemic attack (TIA), and cerebral infarction without residual deficits; Z85.820 Personal history of malignant melanoma of skin; Z82.49 Family history of ischemic heart disease and other diseases of the circulatory system; Z82.0 Family history of epilepsy and other diseases of the nervous system; I25.2 Old myocardial infarction; Z92.3 Personal history of irradiation; Z90.49 Acquired absence of other specified parts of digestive tract
CPT/HCPCS: 36415; 43239; 71045; 74176; 76705; 80048; 80053; 80307; 81001; 82150; 82247; 82962; 83036; 83690; 84075; 84450; 84460; 85025; 85610; 85730; 86850; 86900; 86901; 93005; 96360; G0378; J1815; J2250; J2470